=== PATIENT | male | born 1970 | race Caucasian/White ===

== ENCOUNTER 2020-11-08 07:51 | Observation (INO) | payer MEDICARE ==
[2020-11-06 14:05] LABS: BASOPHILS # (AUTO) 0.1 (0.0-0.1); EOSINOPHILS # (AUTO) 0.1 (0.0-0.4); HEMOGLOBIN 15.9 g/dL (14.0-18.0); LYMPHOCYTES % 21.8 % (18.0-39.1); MEAN CORPUSCULAR HEMOGLOBIN 29.6 pg (28-32); MEAN CORPUSCULAR HGB CONC 32.4 g/dL (31-35); MEAN CORPUSCULAR VOLUME 91.2 fL (81-99); MONOCYTES # (AUTO) 0.4 (0.2-0.8); MONOCYTES % 4.9 % (4.4-11.3); NEUTROPHILS # (AUTO) 6.4 (2.1-6.9); PLATELET COUNT 257 x10e3/uL (140-360); RED BLOOD COUNT 5.37 x10e6/uL (4.3-5.7)
[2020-11-06 14:16] LABS: INR 1.15; PROTHROMBIN TIME 14.9 seconds (11.9-14.5)
[2020-11-06 14:17] LABS: PARTIAL THROMBOPLASTIN TIME 28.7 seconds (23.8-35.5)
[2020-11-06 14:21] LABS: ANION GAP 14.9 mmol/L (8-16); CALCIUM 8.9 mg/dL (8.4-10.2); CREATININE, SERUM 0.85 mg/dL (0.72-1.25); POTASSIUM 3.9 mmol/L (3.5-5.1)
[~2020-11-08] VITALS: Ht 190.5 cm; Wt 147.4 kg
[~2020-11-08 07:51] MED LIST: CELEBREX200 MG PO; LISINOPRIL-HCT1 EACH PO; NEURONTIN300 MG PO; OMEPRAZOLE40 MG PO; SIMVASTATIN40 MG PO; TIZANIDINE HCL4 M1 PO; TRICOR145 MG PO
[2020-11-08] MEDS ORDERED: Vancomycin IV 1 GM VIAL ONE (08:14)
[2020-11-08] MEDS ORDERED: LIDOCAINE 1% W/EPINEPHRINE 20 ML VIAL ONE (08:14)
[2020-11-08] MEDS ORDERED: THROMBIN FOR SOLN 5,000 UNIT VIAL ONE (08:14)
[2020-11-08] MEDS ORDERED: SODIUM CHLORIDE 0.9% 50ML 100 ML ONE (09:59)
[2020-11-08] MEDS ORDERED: HYDROCODON-ACE1 EA12 PO (12:55)
[2020-11-08] MEDS: LACTATED RINGER'S 1,000 ML IV SCH ×2 (13:00→21:20)
[2020-11-08] MEDS ORDERED: HYDROMORPHONE 2MG/ML 2 MG/ML ML IV PRN (13:00)
[2020-11-08] MEDS ORDERED: MORPHINE SULFATE 5 MG/ML VIAL IM PRN (13:00)
[2020-11-08] MEDS ORDERED: CEPACOL SORE THROAT LOZENGES PO PRN (13:00)
[2020-11-08] MEDS ORDERED: ONDANSETRON HCL INJ 2MG/ML 2ML 2 MG/ML VIAL IV PRN (13:00)
[2020-11-08] MEDS ORDERED: ACETAMINOPHEN 325 MG TAB PO PRN (13:00)
[2020-11-08] MEDS ORDERED: MAGNESIUM/ALUMINUM/SIMETHICONE 30 ML UDC PO PRN (13:00)
[2020-11-08] MEDS ORDERED: OXYCODONE/ACETAMINOPHEN 5-325 1 EACH TABLET PO PRN (13:00)
[2020-11-08] MEDS ORDERED: PROMETHAZINE HCL (IM) 25 MG/ML VIAL IM PRN (13:00)
[2020-11-08] MEDS ORDERED: CARISOPRODOL 350 MG TAB PO PRN (13:00)
[2020-11-08] MEDS: TIZANIDINE HCL 4 MG TAB PO SCH ×2 (14:00→22:00)
[2020-11-08 17:00] VITALS: BP 140/86
[2020-11-08 17:05] VITALS: BP 140/86
[2020-11-08 17:49] VITALS: BP 140/86
[2020-11-08 19:00] VITALS: BP 139/85
[2020-11-08 20:00] VITALS: BP 139/85
[2020-11-08] MEDS: Cefazolin 1 GM in SODIUM CHLORIDE 0.9% 50ML 50 ML IV SCH (20:00)
[2020-11-08] MEDS ORDERED: SODIUM CHLORIDE 0.9% 250ML 250 ML ONE (20:56)
[2020-11-08] MEDS ORDERED: ZOLPIDEM TARTRATE 5 MG TAB PO PRN (21:00)
[2020-11-08] MEDS ORDERED: HYDROCHLOROTHIAZIDE 25 MG TAB PO SCH (21:00)
[2020-11-08] MEDS ORDERED: LISINOPRIL 20 MG TAB PO SCH (21:00)
[2020-11-08] MEDS ORDERED: SIMVASTATIN 40 MG TAB PO SCH (21:00)
[2020-11-08 23:55] VITALS: BP_SYST 130; BP_SYST 139; BP_DIAS 80; BP_DIAS 85
[2020-11-09] MEDS: Cefazolin 1 GM in SODIUM CHLORIDE 0.9% 50ML 50 ML IV SCH ×2 (03:49→11:44)
[2020-11-09 04:59] VITALS: BP 127/87
[2020-11-09] MEDS: LACTATED RINGER'S 1,000 ML IV SCH (05:40)
[2020-11-09] MEDS: TIZANIDINE HCL 4 MG TAB PO SCH (06:00)
[2020-11-09] MEDS ORDERED: PANTOPRAZOLE SOD 40 MG TABEC PO SCH (07:30)
[2020-11-09 07:55] VITALS: BP 126/81
[2020-11-09] MEDS ORDERED: FENOFIBRATE 145 MG TAB PO SCH (09:00)
[2020-11-09] MEDS ORDERED: GABAPENTIN 300 MG CAP PO SCH (09:00)
[2020-11-09] MEDS ORDERED: CELECOXIB 200 MG CAP PO SCH (09:00)
[2020-11-09 10:13] VITALS: BP 126/81
[2020-11-09 11:26] VITALS: BP 122/78
== END 2020-11-09 12:39 | disposition home or self-care (01) ==
LOC: OR 07:51 → PACU V 13:07 → MED/SURG 16:55
PROVIDERS: ADMIT Neurological Surgery; ATTEND Neurological Surgery
DX: M50.01 Cervical disc disorder with myelopathy, high cervical region (principal); I10 Essential (primary) hypertension; E78.5 Hyperlipidemia, unspecified; K21.9 Gastro-esophageal reflux disease without esophagitis; Z20.822 Contact with and (suspected) exposure to COVID-19; Z01.818 Encounter for other preprocedural examination
CPT/HCPCS: 20931; 22551; 22845; 36415; 71046; 72040; 77003; 80048; 85025; 85610; 85730; 86850; 86900; 88304; 93005; G0378 ×2; J0690 ×2; J3370; J7050; S0164; U0002